=== PATIENT | female | born 1965 | race Caucasian/White ===

== ENCOUNTER 2017-06-24 09:30 | Emergency (ER) | payer MEDICAID, OTHER ==
[~2017-06-24] VITALS: Ht 152.4 cm; Wt 99.8 kg
[~2017-06-24 09:30] MED LIST: ALBU0.0939 IH; IBUP400T98 PO; MEDR150S20 IH
[2017-06-24 09:37] VITALS: BP 120/73
--- NOTE | 2017-06-24 09:58 | NUR ---
PT TRIAGED, AMBULATED TO ER LOBBY WAITING FOR ER BED. ERMD AWARE OF PATIENT STATUS.
--- NOTE | 2017-06-24 10:43 | NUR ---
PATIENT TO OF1 AT THIS TIME.
--- NOTE | 2017-06-24 10:46 | NUR ---
51/F BIB FAMILY C/O COUGH x 7 DAYS. MEDS:TUSSIN DM, PREDNISONE 20MG, ALBUTEROL INHALER HX: ASTHMA. DENIES N/V/D; SKIN IS PINK/WARM/DRY; AAOX4 WITH EVEN AND STEADY GAIT; LUNGS CLEAR BL; PATIENT STATES MID CHEST PAIN OF 4/10 WHEN COUGHING AT THIS TIME; PATIENT POSITIONED FOR COMFORT; HOB ELEVATED; BEDRAILS UP X2; BED DOWN. ER MD MADE AWARE OF PT STATUS.
[2017-06-24] MEDS ORDERED: ACETAMINOPHEN EXTRA STRENGTH 500 MG TAB PO ONE (11:50)
[2017-06-24] MEDS ORDERED: ALBUTEROL SULFATE/IPRATROPIU 3 ML SOL IH ONE (11:50)
[2017-06-24] MEDS ORDERED: DEXAMETHASONE 10 MG/ML VIAL IM ONE (11:50)
[2017-06-24 13:12] VITALS: BP 118/84
--- NOTE | 2017-06-24 13:12 | NUR ---
Patient discharged with v/s stable. Written and verbal after care instructions given and explained. Patient alert, oriented and verbalized understanding of instructions. Ambulatory with steady gait. All questions addressed prior to discharge. ID band removed. Patient advised to follow up with PMD. Rx of PREDNISONE, COUGH SYRUP, AND AZITHROMAX given. Patient educated on indication of medication including possible reaction and side effects. Opportunity to ask questions provided and answered.
== END 2017-06-24 13:12 | disposition home or self-care (01) ==
LOC: MED 09:30
DX: J40 Bronchitis, not specified as acute or chronic (principal); J45.909 Unspecified asthma, uncomplicated
CPT/HCPCS: 94640; 96372; 99283; J1100; J7620

== ENCOUNTER 2018-04-11 17:38 | Emergency (ER) | payer MEDICAID ==
[~2018-04-11] VITALS: Ht 165.1 cm; Wt 105.2 kg
[2018-04-11 17:48] VITALS: BP 86/46
[2018-04-11] MEDS: fentaNYL 0.05 MG/ML VIAL IVP ONE (19:50)
[2018-04-11] MEDS: NACL 0.9% 1,000 ML IV ONE (19:50)
[2018-04-11] MEDS: DICYCLOMINE HCL LIQUID 20 MG, ALUMINUM HYD/MAG/SIMETHICONE 30 ML, LIDOCAINE VISCOUS 2% ... PO ONE ×3 (19:51)
[2018-04-11] MEDS: ONDANSETRON 4 MG/2 ML VIAL IVP ONE (19:51)
[2018-04-11 20:24] LABS: BASOPHILS # (AUTO) 0.1 K/uL (0.00-0.22); BASOPHILS % (AUTO) 0.5 % (0.0-2.0); EOSINOPHILS # (AUTO) 0.2 K/uL (0-0.4); EOSINOPHILS % (AUTO) 2.4 % (0.0-4.0); HEMATOCRIT 40.9 % (36-48); HEMOGLOBIN 13.3 g/dL (12.0-16.0); LYMPHOCYTES # (AUTO) 1.9 K/uL (2.5-16.5); LYMPHOCYTES % (AUTO) 18.6 % (20.5-51.1); MEAN CORPUSCULAR HEMOGLOBIN 28 pg (27-31); MEAN CORPUSCULAR HGB CONC 32 g/dL (33-37); MEAN CORPUSCULAR VOLUME 85.2 fL (80-94); MONOCYTES # (AUTO) 0.5 K/uL (0.8-1.0); NEUTROPHILS # (AUTO) 7.5 K/uL (1.8-7.7); NEUTROPHILS % (AUTO) 73.5 % (42.2-75.2); PLATELET COUNT (AUTO) 323 K/uL (140-450); RED BLOOD CELL COUNT(AUTO) 4.81 MIL/uL (4.20-5.40); RED CELL DISTRIBUTION WIDTH 14.5 % (11.6-13.7); WHITE BLOOD COUNT (AUTO) 10.3 K/uL (4.8-10.8)
[2018-04-11 20:33] LABS: ANION GAP 11.9 (8-16); CARBON DIOXIDE 26.2 mmol/L (21-32); POTASSIUM 4.1 mmol/L (3.5-5.1)
[2018-04-11 20:39] LABS: ALBUMIN 3.4 g/dL (3.4-5.0); TOTAL BILIRUBIN 0.3 mg/dL (0.0-1.0)
[2018-04-11 21:30] LABS: APPEARANCE,URINE CLEAR (CLEAR); BILIRUBIN,URINE NEGATIVE (NEGATIVE); BLOOD, URINE NEGATIVE (NEGATIVE); COLOR,URINE YELLOW (YELLOW); LEUKOCYTE ESTERASE ,URINE NEGATIVE (NEGATIVE); NITRITE, URINE NEGATIVE (NEGATIVE); UGLUCOSE NEGATIVE (NEGATIVE)
[2018-04-11 21:54] VITALS: BP 111/67
== END 2018-04-11 21:54 | disposition home or self-care (01) ==
LOC: MED 17:38
DX: R10.10 Upper abdominal pain, unspecified (principal); R11.2 Nausea with vomiting, unspecified; J45.909 Unspecified asthma, uncomplicated; Z88.2 Allergy status to sulfonamides; Z79.899 Other long term (current) drug therapy; Z90.49 Acquired absence of other specified parts of digestive tract
CPT/HCPCS: 36415; 74176; 80053; 81003; 81025; 83690; 84484; 85025; 93005; 96361; 96374; 96375; 99285; J2405; J3010; J7030